=== PATIENT | female | born 1960 | race Caucasian/White ===

== ENCOUNTER 2018-08-31 23:22 | Emergency (ER) | payer MEDICARE ==
[~2018-08-31] VITALS: Ht 160 cm; Wt 45.5 kg
[2018-09-01 00:38] VITALS: BP 113/83
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
--- NOTE | 2018-09-01 01:21 | NUR ---
RADIOLOGY AT BEDSIDE FOR XRAY
[2018-09-01] MEDS ORDERED: HYDROCODONE/APAP 10/325MG 1 EA TABLET ONE (01:22)
[2018-09-01] MEDS ORDERED: ONDANSETRON 4 MG TAB.RAPDIS ONE ×2 (01:23→04:40)
[2018-09-01] MEDS ORDERED: HYDROCODONE/APAP 10/325MG 1 EA TABLET PO ONE (01:30)
[2018-09-01] MEDS ORDERED: ONDANSETRON 4 MG TAB.RAPDIS SL ONE ×2 (01:30→05:00)
--- NOTE | 2018-09-01 05:00 | NUR ---
PT LEFT BEFORE DISCHARGE PAPERWORK
== END 2018-09-01 05:03 | disposition left against medical advice (07) ==
LOC: ER 23:42
DX: S62.632A Displaced fracture of distal phalanx of right middle finger, initial encounter for closed fracture (principal); X58.XXXA Exposure to other specified factors, initial encounter; Y93.89 Activity, other specified; Y92.89 Other specified places as the place of occurrence of the external cause; Y99.8 Other external cause status; F17.200 Nicotine dependence, unspecified, uncomplicated; G89.4 Chronic pain syndrome; Z85.028 Personal history of other malignant neoplasm of stomach; Z98.890 Other specified postprocedural states; Z88.6 Allergy status to analgesic agent
CPT/HCPCS: 29130; 73140; 99284; Q0162 ×2